=== PATIENT | male | born 1960 | race Caucasian/White ===

== ENCOUNTER → 2022-12-24 | Outpatient (CLI) | payer BC ==
[~2022-12-24] MED LIST: CIPR500S2 PO; CITA20TA4 PO; CYCL10TA9 PO; DCS100C PO; ESCI5TAB PO; MTF500T PO; ONDA8TAB13 PO; OXB5T PO; SILO8CAP PO; SULF1TAB7 PO; TRAM50TA2 PO; VICODIN PO
--- NOTE | 2022-12-24 10:38 | Diagnostic Imaging Report ---
INDICATION: Low back pain Lumbar spine AP and lateral views of lumbar spine show normal vertebral body height and alignment. There is disc space narrowing at L4-L5. There are small osteophytes forming at each lumbar level. IMPRESSION: Mild diffuse spondylosis. Moderate degenerative disc changes at L4-L5. Dictated by: Dictated on workstation # [id number]
== END ==
LOC: RAD 09:03
PROVIDERS: ATTEND Family Medicine
DX: M47.816 Spondylosis without myelopathy or radiculopathy, lumbar region (principal); M51.36 Other intervertebral disc degeneration, lumbar region
CPT/HCPCS: 72100

== ENCOUNTER 2023-01-14 13:13 | Outpatient (RCR) | payer BC | END 2023-01-16 | disposition home or self-care (01) | PROVIDERS: ATTEND Family Medicine | DX: M54.50 Low back pain, unspecified (principal) ==

== ENCOUNTER 2023-02-04 11:34 | Outpatient (RCR) | payer BC | END 2023-02-16 | disposition home or self-care (01) | PROVIDERS: ATTEND Family Medicine | DX: M54.50 Low back pain, unspecified (principal) ==